=== PATIENT | male | born 1990 | race Caucasian/White ===

== ENCOUNTER → 2024-01-16 | Day surgery (SDC) | payer OTHER ==
[~2024-01-16] MED LIST: Midazolam 1 MG/ML 2 ML SDV ONE; Propofol 200 MG/20 ML SDV ONE; fentaNYL 100 MCG/2 ML SDV ONE
[2024-01-16] MEDS: HYDROmorphone 1 MG/ML Syringe IM ONE (17:08)
[2024-01-16] MEDS: Clindamycin in 0.9 % Sod Chlor 600 MG in Premix Bag 1 BAG IV ONE (17:51)
[2024-01-16] MEDS: Bupivacaine 0.5% 50 ML MDV ONE (18:41)
== END ==
LOC: JP.ED 15:39 → JP.SDS 17:32
PROVIDERS: ATTEND Specialist
DX: S60.352A Superficial foreign body of left thumb, initial encounter (principal); Z88.8 Allergy status to other drugs, medicaments and biological substances; W45.0XXA Nail entering through skin, initial encounter
CPT/HCPCS: 73140-26-FA; 73140-FA; 96365; 96372; 99283-25; 99284; J0665; J1170; J2250; J2704; J3010; J3490; U0002